=== PATIENT | female | born 1945 | race Caucasian/White ===

== ENCOUNTER 2025-05-31 06:39 | Emergency (ER) | payer MEDICARE, MEDICAID, SELFPAY ==
[2025-05-31] VITALS (7 sets, daily range): BP systolic 126–177; BP diastolic 44–105; PULSE 72–77; RESP 14–18; TEMP 36.8; O2SAT 86–97
--- NOTE | 2025-05-31 06:45 | XRR_ITS ---
PROCEDURE INFORMATION: Exam: XR Chest Exam date and time: 05/31/2025 6:57 AM Age: 80 years old Clinical indication: Cough and dyspnea; Additional info: Dyspnea/cough TECHNIQUE: Imaging protocol: Radiologic exam of the chest. Views: 1 view. COMPARISON: No relevant prior studies available. FINDINGS: Lungs: Emphysema with pulmonary hyperexpansion. No focal consolidation. Pleural spaces: No sizable pleural effusion or pneumothorax. Heart/Mediastinum: No cardiomegaly. Vasculature: Atherosclerotic calcifications of the aortic arch. Bones/joints: Unremarkable. XR/XR chest 1V portable [id number] IMPRESSION: No acute intrathoracic findings.
--- NOTE | 2025-05-31 06:57 | ED_ITS ---
HPI - General Adult 2 General: Chief complaint: Shortness of Breath/Dyspnea Stated complaint: low O2 sats Time Seen by Provider: 05/31/25 06:45 History of Present Illness: 80-year-old female presents emergency ro om via EMS from nursing with complaint of hypoxia. Typically patient wears 2 L/min at her baseline. EMS reported the patient was in the low 70s on room air. She is in no respiratory distress she is actually hide with annoyed that she was brought to the emergency room. Patient has a history of dementia also has history of COPD. No report of recent fever sweats or chills. Associated symptoms: Deny chest pain, dyspnea or rash Related Data Previous Rx's ?Medication ?Instructions ?Recorded methylprednisolone 4 mg tablets in See Rx Instructions PO .COMPLEX 05/31/25 a dose pack (Medrol (Ace)) #21 ea Allergies Allergy/AdvReac Type Severity Reaction Status Date / Time azithromycin Allergy Unknown Verified 05/31/25 06:53 clarithromycin Allergy Unknown Verified 05/31/25 06:53 erythromycin base Allergy Unknown Verified 05/31/25 06:53 influenza virus vaccine tvs Allergy Unknown Verified 05/31/25 06:53 [id number](65 years up) (From Fluzone High-Dose Triv ) Influenza Virus Vaccines Allergy Unknown Verified 05/31/25 06:53 Macrolide Antibiotics Allergy Unknown Verified 05/31/25 06:53 Penicillins Allergy Unknown Verified 05/31/25 06:53 Review of Systems 2 Const: Denies: fever(s) or chills Card: Denies: chest pain Resp: Denies: dyspnea GI: Denies: abdominal pain : Denies: dysuria, urinary frequency or urinary urgency Musc: Denies: neck pain or back pain Skin/Breast: Denies: rash Physical Exam 2 Const: ORIENTATION/CONSCIOUSNESS: Yes awake HENMT: COMMON NORMALS: normocephalic, atraumatic and hearing grossly normal bilaterally HEAD & SCALP: normocephalic and atraumatic Resp: COMMON NORMALS: normal respiratory effort, No retractions, No use of accessory muscles and clear to auscultation bilaterally AUSCULTATION: clear to auscultation bilaterally and diminished lung sounds Cardio: COMMON NORMALS: regular rate, regular rhythm and No murmurs present (Cardio) RATE: regular rate RHYTHM: regular rhythm GI: COMMON NORMALS: Soft to palpation and No hepatosplenomegaly present A USCULTATION: Yes normoactive bowel sounds PALPATION: Yes Soft to palpation, No Tenderness to palpation present (GI), No Guarding due to palpation present (GI) and Yes No hepatosplenomegaly present Extremity: COMMON NORMALS: normal to inspection, capillary refill normal, no clubbing, cyanosis or edema, no calf tenderness and no pedal edema Skin: COMMON NORMALS: no rashes or lesions noted GENERAL SKIN EXAM: no rashes or lesions noted Course 2 Vital Signs: Vital signs: Vital Signs Temperature 98.2 F 05/31/25 06:43 Pulse Rate 76 05/31/25 09:00 Respiratory Rate 17 05/31/25 09:00 Blood Pressure 143/44 05/31/25 09:00 Pulse Oximetry 93 05/31/25 09:00 Oxygen Delivery Me thod Nasal Cannula 05/31/25 09:00 Oxygen Flow Rate 3.5 05/31/25 09:00 MDM - General Adult Medical Decision Making Exam is pretty unremarkable there is reported a brief time of hypoxia at the custodial however evidently she was not on oxygen at the time she is maintaining her sats about where we would expect. The blood gas we vicky looks like it was probably a mixed arterial venous gas. Overall she is doing well the worst could be said at this point if she has a mild exacerbation of his COPD we will put her on a short course of steroids there is no sign of infection of the [place] antibiotics are warranted other labs were unremarkable EKG will discharge patient back to the custodial. Medical Records I reviewed the patient's medical records. Lab Data I reviewed the patient's lab results. 05/31/25 06:57 05/31/25 06:57 Radiology Impressions Chest X-Ray 05/31/25 06:45 IMPRESSION: No acute intrathoracic findings. Laboratory Results WBC 5.93 10^3/uL (3.29-11.43) 05/31/25 06:57 RBC 4.20 10^6/uL (3.85-5.65) 05/31/25 06:57 Hgb 12.60 g/dL (11.27-16.99) 05/31/25 06:57 Hct 41.2 % (36-47) 05/31/25 06:57 MCV 98.1 fl (85-98) H 05/31/25 06:57 MCH 30.0 pg (27-33) 05/31/25 06:57 MCHC 30.6 g/dL (30-55) 05/31/25 06:57 RDW 12.4 % (12.1-15.1) 05/31/25 06:57 Plt Count 180 10^3/cmm (157-399) 05/31/25 06:57 MPV 9.9 fL (7.4-10.4) 05/31/25 06:57 Neut % (Auto) 70.2 % 05/31/25 06:57 Lymph % (Auto) 18.0 % 05/31/25 06:57 [place] % (Auto) 9.6 % 05/31/25 06:57 Eos % (Auto) 1.5 % 05/31/25 06:57 Baso % (Auto) 0.5 % 05/31/25 06:57 Neut # (Auto) 4.16 10^3/uL (1.8-7.7) 05/31/25 06:57 Lymph # (Auto) 1.1 10^3/uL (0.8-4.8) 05/31/25 06:57 [place] # (Auto) 0.6 10^3/uL (0.2-0.9) 05/31/25 06:57 Eos # (Auto) 0.1 10^3/uL (0.0-0.8) 05/31/25 06:57 Baso # (Auto) 0.0 10^3/uL (0.0-0.1) 05/31/25 06:57 Nucleated RBC % (auto) 0 % 05/31/25 06:57 Nucleated RBCs # 0.0 /100WBC 05/31/25 06:57 Specimen Type Arterial 05/31/25 07:48 Sample Site Radial, right 05/31/25 07:48 ABG pH 7.41 (7.35-7.45) 05/31/25 07:48 ABG pCO2 58.4 mmHg (35-45) H 05/31/25 07:48 ABG pO2 52.9 mmHg (80.0-100.0) L 05/31/25 07:48 ABG PO2/FiO2 Ratio 188 05/31/25 07:48 ABG HCO3 36.6 mmol/L (22-26) H 05/31/25 07:48 ABG O2 Saturation 88.6 05/31/25 07:48 ABG Base Excess 9.8 mmol/L (-2.0-2.0) H 05/31/25 07:48 Josiah Test Pos 05/31/25 07:48 A-a O2 Gradient 9.9 mmHg (5-10) 05/31/25 07:48 Hematocrit 39.0 % (37-47) 05/31/25 07:48 Hgb O2 Saturation 86.7 % (95-100) L 05/31/25 07:48 Carboxyhemoglobin 1.3 %THgb (0.4-20.1) 05/31/25 07:48 Methemoglobin 0.8 % (0.4-1.5) 05/31/25 07:48 Total Hemoglobin 12.7 g/dL (12-16) 05/31/25 07:48 Sodium 145.0 mmol/L (131-143) H 05/31/25 07:48 Potassium 3.7 mmol/L (3.5-5.0) 05/31/25 07:48 Glucose 100.0 mg/dL (70-115) 05/31/25 07:48 Ionized Calcium 1.2 mmol/L (1.1-1.4) 05/31/25 07:48 O2 Delivery Device Nc 05/31/25 07:48 O2 Liters/Min 2.0 % 05/31/25 07:48 FiO2 28.0 % 05/31/25 07:48 Customer Solutions Supervisor ID glc 05/31/25 07:48 Sodium 145 mmol/L (136-145) 05/31/25 06:57 Potassium 3.9 mmol/L (3.5-5.1) 05/31/25 06:57 Chloride 101 mmol/L (98-107) 05/31/25 06:57 Carbon Dioxide 34 mmol/L (22-29) H 05/31/25 06:57 Anion Gap 13.9 (5-19) 05/31/25 06:57 BUN 17 mg/dL (8-23) 05/31/25 06:57 Creatinine 0.4 mg/dL (0.5-0.9) L 05/31/25 06:57 GFR Calculation Not Reportable 05/31/25 06:57 Glucose 94 mg/dL (65-115) 05/31/25 06:57 Calculated Osmolality 301 mOsm/kg (285-295) H 05/31/25 06:57 Calcium 9.2 mg/dL (8.5-10.5) 05/31/25 06:57 Total Bilirubin 0.3 mg/dL (0.15-1.2) 05/31/25 06:57 AST 14 U/L (0-32) 05/31/25 06:57 ALT < 5 U/L (0-33) 05/31/25 06:57 Alkaline Phosphatase 48 U/L (35-105) 05/31/25 06:57 Troponin T Baseline 19 ng/L (0-10) H 05/31/25 06:57 Troponin T 120 Minute 18.52 ng/L (0-10) H 05/31/25 08:39 Delta Troponin T -0.48 ABS# (0-10) L 05/31/25 08:39 C-Reactive Protein 3.0 mg/L (0.0-4.9) 05/31/25 06:57 NT-Pro-B Natriuret Pep 264 pg/mL (0-450) 05/31/25 06:57 Total Protein 7.0 g/dL (6.6-8.7) 05/31/25 06:57 Albumin 4.1 g/dL (3.5-5.2) 05/31/25 06:57 Globulin 2.9 g/dL (1.3-4.6) 05/31/25 06:57 Influenza A (PCR) Negative (Negative) 05/31/25 07:17 Influenza Type B (PCR) Negative (Negative) 05/31/25 07:17 RSV (PCR) Negative (Negative) 05/31/25 07:17 SARS-CoV-2 (PCR) Negative (Negative) 05/31/25 07:17 All radiology interpretation(s) finalized by discharge EKG Data EKG 1: Interpretation: EKG May 31, 2025 7:35 AM check rhythm low voltage. Right bundle branch block. Rate of 70. Normal 152 QTc 428. Right bundle branch block and left fascicular block. Results and abnormal ST segments. Computer reads ST elevation clinically patient has no chest pain at this time. No evidence of acute MS clinically EKG findings do not meet criteria for ST elevation MS Computer generated interpretation: Chest X-Ray 05/31/25 06:45 IMPRESSION: No acute intrathoracic findings. Discharge Plan Discharge Patient Disposition: Home Clinical Impression: Acute exacerbation of chronic obstructive airways disease Condition: Stable Prescriptions: New methylprednisolone [Medrol (Ace)] 4 mg tablets,dose pack See Rx Instructions .ROUTE .COMPLEX Qty: 21 0RF Rx Instructions: orally per package directions Discharge Orders: Discharge ED (Routine); Ordered 05/31/25 Ordered By: Mt Boucher Discharge Diet: Usual diet Discharge Activity: Resume usual activity Patient Instructions: Opioid Safety, Pain Management, Patient Portal & Maikol Instructions Activity Restrictions/Additional Instructions: Thank you for choosing [facility] for your healthcare needs today. It is very important that you follow up as instructed or that you return to the Emergency Department should you have concerns or if your condition changes or worsens in any way. You are seen emergency room with complaint of shortness of breath your cardiac enzymes were normal. On 3 and half liters her oxygen saturation remained at the expected range given your underlying COPD. There is no evidence of pneumonia on your chest x-ray. Your other labs did not show clinically significant abnormalities. Will have you on a short course of steroids continue your other medications at the custodial follow-up as needed. Print Language: Burmese Coding Level of Care Code ED Retail Associate Manager Bilingual for Marvel Arriaza
--- NOTE | 2025-05-31 06:58 | ECG_ITS ---
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1945 Requested By: Mt Finney Order Number: [id number] Reading MD: Measurements Intervals [place] Rate: 72 P: -85 AL: 153 QRS: 151 QRSD: 92 T: 70 QT: 396 QTc: 433 Interpretive Statements ECTOPIC ATRIAL RHYTHM INCOMPLETE RIGHT BUNDLE BRANCH BLOCK [90+ ms QRS DURATION, TERMINAL R IN V1/V2, 40+ ms S IN I/aVL/V4/V5/V6] RIGHT VENTRICULAR HYPERTROPHY [SOME/ALL OF: PROMINENT R IN V1, LATE TRANSITION, RAD, YVES, SSS] ST ELEVATION, CONSIDER INFERIOR INJURY [MARKED ST ELEVATION W/O NORMALLY INFLECTED T-WAVE IN II/aVF] ACUTE ME No previous ECG available for comparison [email or web address]
[2025-05-31 07:09] LABS: Hematocrit 41.2 % (36-47); Hemoglobin 12.60 g/dL (11.27-16.99); Mean Corpuscular HGB Conc 30.6 g/dL (30-55); Mean Corpuscular Hemoglobin 30.0 pg (27-33); Mean Corpuscular Volume 98.1 fl (85-98); Nucleated Red Blood Cells % 0 %; Platelet Count 180 10^3/cmm (157-399); Red Blood Count 4.20 10^6/uL (3.85-5.65); White Blood Count 5.93 10^3/uL (3.29-11.43)
[2025-05-31 07:34] LABS: Troponin(5th) Baseline 19 ng/L (0-10)
--- NOTE | 2025-05-31 07:40 | PC.NURSE ---
pt refused straight cath, Dr. Boucher notified.
[2025-05-31] MEDS: methylPREDNISolone sod succ 125 mg/2 mL INJ IVP (07:41)
[2025-05-31 07:45] LABS: Alanine Aminotransferase < 5 U/L (0-33); Albumin Level 4.1 g/dL (3.5-5.2); Alkaline Phosphatase 48 U/L (35-105); Anion Gap 13.9 (5-19); Aspartate Amino Transferase 14 U/L (0-32); Blood Urea Nitrogen 17 mg/dL (8-23); Calcium 9.2 mg/dL (8.5-10.5); Carbon Dioxide 34 mmol/L (22-29); Chloride 101 mmol/L (98-107); Globulin 2.9 g/dL (1.3-4.6); Glucose 94 mg/dL (65-115); NT Pro B Type Natriuretic Pept 264 pg/mL (0-450); Osmolality Calculated 301 mOsm/kg (285-295); Potassium 3.9 mmol/L (3.5-5.1); Sodium 145 mmol/L (136-145); Total Protein 7.0 g/dL (6.6-8.7)
[2025-05-31 07:59] LABS: ABG PCO2 58.4 mmHg (35-45); ABG PH Result 7.41 (7.35-7.45); Alveolar-Arterial Oxygen Gradi 9.9 mmHg (5-10); Arterial Blood Gas Hematocrit 39.0 % (37-47); Blood Gas Allen Test Pos; Blood Gas LPM 2.0 %; Blood Gas Operator Identificat glc; Blood Gas Sample Site Radial, right; Blood Gas Sample Type Arterial; Carboxyhemoglobin 1.3 %THgb (0.4-20.1); Glucose Level-ABG 100.0 mg/dL (70-115); HCO3 ABG 36.6 mmol/L (22-26); Ionized Calcium Level - ABG 1.2 mmol/L (1.1-1.4); Methemoglobin 0.8 % (0.4-1.5); Oxygen Saturation ABG 88.6; PO2 ABG 52.9 mmHg (80.0-100.0); PO2 FiO2 Ratio Arterial Blood 188; Potassium Level - ABG 3.7 mmol/L (3.5-5.0); Sodium Level - ABG 145.0 mmol/L (131-143)
[2025-05-31 08:19] LABS: Respiratory Syncytial Virus Ce NEGATIVE (Negative); SARS-CoV-2 PCR NEGATIVE (Negative)
[2025-05-31 09:10] LABS: Troponin 5 2HR 18.52 ng/L (0-10)
[2025-05-31 09:11] LABS: Troponin 5 2HR Delta -0.48 ABS# (0-10)
--- NOTE | 2025-05-31 12:58 | ECG_ITS ---
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 Measurements Intervals [place] Rate: 70 P: -81 CA: 152 QRS: 150 QRSD: 121 T: 55 QT: 407 QTc: 442 Interpretive Statements ECTOPIC ATRIAL RHYTHM RIGHT BUNDLE BRANCH BLOCK [120+ ms QRS DURATION, UPRIGHT V1, 40+ ms S IN I/aVL/V4/V5/V6] LEFT POSTERIOR FASCICULAR BLOCK [QRS AXIS > 109, INFERIOR Q] Compared to ECG 05/31/2025 06:53:22 Right bundle-branch block now present Left posterior fascicular block now present Incomplete right bundle-branch block no longer present Atrial abnormality no longer present Right ventricular hypertrophy no longer present ST (T wave) deviation still present Myocardial infarct finding still present Electronically Signed On 06-02-2025 08:43:44 CDT by Fidencio Barton M.D. [email or web address] [id number]
== END 2025-05-31 10:20 | disposition home or self-care (01) ==
PROVIDERS: Emergency Provider Family Medicine
DX: J44.1 Chronic obstructive pulmonary disease with (acute) exacerbation (principal); Z11.52 Encounter for screening for COVID-19
CPT/HCPCS: 36415; 36600; 71045; 80051; 80053; 82330; 82805; 83880; 84484; 85025; 86140; 87637; 93005; 93010; 94640; 96374; 99285; J2919; J9999

== ENCOUNTER 2025-10-10 20:18 | Emergency (ER) | payer MEDICARE, MEDICAID, SELFPAY ==
[2025-10-10 20:15] VITALS: BP 173/76; PULSE 71; RESP 20; TEMP 36.8; O2SAT 100; BMI 17.6
--- NOTE | 2025-10-10 20:15 | XRR_ITS ---
PROCEDURE INFORMATION: Exam: XR Chest Exam date and time: 10/10/2025 8:14 PM Age: 80 years old Clinical indication: Shortness of breath; EMS arrival from assisted for SOB. TECHNIQUE: Imaging protocol: Radiologic exam of the chest. Views: 1 view. COMPARISON: CR XR chest 1V portable [id number] 05/31/2025 6:57 AM FINDINGS: Lungs: Increased lung volumes. No consolidation. Pleural spaces: Unremarkable. No pleural effusion. No pneumothorax. Heart/Mediastinum: Unremarkable. No cardiomegaly. Bones/joints: Unremarkable. XR/XR chest 1V portable [id number] IMPRESSION: No acute findings.
--- OUTSIDE RECORDS SUMMARY | 2025-10-10 20:20 | XMS_ITS | Patient Health Record ---
Author Organization [facility] Address [address] [place] [address] Care Team Providers Care Primary Counselor Name Role Phone Nabil Guzman Unavailable [phone] Allergies Allergen (clinical drug ingredient) Drug/Non Drug Allergy documented on EMR Reaction Allergy Type Onset Date Status Vaccine product containing Influenza virus antigen (medicinal product) flu vaccine (uncoded) Unknown Allergy Active amoxicillin Amoxicillin Unknown Drug Allergy Act basil sulfamethoxazole / trimethoprim Bactrim Unknown Drug Allergy Active codeine Codeine Sulfate Unknown Drug Allergy A ctive erythromycin Erythromycin Unknown Drug Allergy A ctive Pneumococcal Vac Polyvalent Unknown Drug Allergy Active Reason For Referral No Information Medications Medication SIG (Take, Route, Frequency, Duration) Notes Start Date End Date Status Albuterol Sulfate HFA *Pick strength-form from DraftDay for eRX* Active Albuterol Sulfate (2.5 MG/3ML) 0.083% Nebulization Solution 3 ml Inhalation Act basil Social History Social History Additional Details Category Social Info Options Details Migrated Social History Social History: (Alcohol):No IN THE PAST (Caffine): Yes (Illicit Drugs):No (Sexually Active): No (Smoking): status: Current smoker Section Notes: RETIRED Plan Of Treatment No Information Medical (General) History Medical History History ICD Code COPD Surgical History Surgery Date(Month/Year) hysterectomy ovary removed eye surgery
--- NOTE | 2025-10-10 20:22 | ED_ITS ---
HPI - SOB/Dyspnea General: Chief Complaint: Shortness of Breath/Dyspnea Stated Complaint: sob History of Present Illness: HPI Narrative: 80-year-old female presenting with short ness of breath from the intermediate. On EMS arrival, they found her saturations to the low, in the 70s. Her oxygen hose was kinked. Upon unkinking of the hose, and appropriate levels of oxygen given to the patient, her saturations are now 90%. Her symptoms are resolved. She does not have a fever. Her vitals have been stable Related Data Previous Rx's ?Medication ?Instructions ?Recorded methylprednisolone 4 mg tablets in See Rx Instructions PO .COMPLEX 05/31/25 a dose pack (Medrol (Ace)) #21 ea Allergies Allergy/AdvReac Type Severity Reaction Status Date / Time azithromycin Allergy Unknown Verified 05/31/25 06:53 clarithromycin Allergy Unknown Verified 05/31/25 06:53 erythromycin base Allergy Unknown Verified 05/31/25 06:53 influenza virus vaccine tvs Allergy Unknown Verified 05/31/25 06:53 [id number](65 years up) (From Fluzone High-Dose Triv ) Influenza Virus Vaccines Allergy Unknown Verified 05/31/25 06:53 Macrolide Antibiotics Allergy Unknown Verified 05/31/25 06:53 Penicillins Allergy Unknown Verified 05/31/25 06:53 Physical Exam Const: COMMON NORMALS: no acute distress GENERAL APPEARANCE: cooperative and frail appearing NUTRITIONAL APPEARANCE: thin HENMT: COMMON NORMALS: normocephalic, atraumatic and Normal external nose present HEAD & SCALP: normocephalic and atraumatic FACE & SINUS: normal facial exam and face symmetric NOSE: Normal external nose present Eye: COMMON NORMALS: Equal, round and reactive pupils present and EOMs intact bilaterally PUPIL: Yes Equal, round and reactive pupils present Neck/C-Spine: GENERAL: Yes trachea midline Chest: CHEST: Yes Symmetrical chest wall rise Resp: COMMON NORMALS: normal respiratory effort, No retractions, No use of accessory muscles and clear to auscultation bilaterally AUSCULTATION: clear to auscultation bilaterally Cardio: COMMON NORMALS: regular rate and regular rhythm RATE: regular rate RHYTHM: regular rhythm GI: COMMON NORMALS: Normal to inspection, nondistended, normoactive bowel sounds present Extremity: COMMON NORMALS: no pedal edema Neuro: PRATIMA COMA SCALE: document GCS findings Pratima coma scale eye open ing: Spontaneous [place] coma scale verbal response: Orientated [place] coma scale motor response: Obey commands Pratima coma scale total score: 15 SENSORY EXAM: Yes extremities (intact) Psych: COMMON NORMALS: speech normal SPEECH: Yes normal speech Course Vital Signs: Vital signs: Vital Signs Temperature 98.2 F 10/10/25 20:15 Pulse Rate 75 10/10/25 20:28 Respiratory Rate 20 H 10/10/25 20:15 Blood Pressure 173/76 10/10/25 20:28 Pulse Oximetry 98 10/10/25 20:28 Oxygen Delivery Me thod Nasal Cannula 10/10/25 20:27 Oxygen Flow Rate 4 10/10/25 20:27 MDM - SOB/Dyspnea Medical Decision Making 80-year-old female with shortness of breath linked to a kinked oxygen hose in the intermediate. Saturations been normal now. She is no longer short of breath. She has a 98 to 100% saturation on her home oxygen setting. She will be discharged back to the intermediate. Her chest x-ray is clear. She is stable for discharge. Lab Data Labs/Radiology: Radiology Impressions Chest X-Ray 10/10/25 20:15 IMPRESSION: No acute findings. All radiology interpretation(s) finalized by discharge Discharge Plan Discharge Patient Disposition: Home Clinical Impression: Acute dyspnea, Chronic hypoxic respiratory failure Condition: Stable Prescriptions: No Action methylprednisolone [Medrol (Ace)] 4 mg tablets,dose pack See Rx Instructions .ROUTE .COMPLEX Qty: 21 0RF Rx Instructions: orally per package directions Discharge Orders: Discharge ED (Routine); Ordered 10/10/25 Ordered By: Redd Keen Patient Instructions: Opioid Safety, Pain Management, Patient Portal & Maikol Instructions Activity Restrictions/Additional Instructions: Return for any repeated episodes of shortness of breath, development of fever, leg swelling, chest pain, other concerning symptoms. Print Language: [place] Islander Coding Level of Care Code ED Lawn Care Professional for Marvel Arriaza
[2025-10-10 20:27] VITALS: BP 173/76; PULSE 73; O2SAT 98
[2025-10-10 20:28] VITALS: BP 173/76; PULSE 75; O2SAT 98
== END 2025-10-10 20:41 | disposition home or self-care (01) ==
PROVIDERS: Emergency Provider Emergency Medicine
DX: J96.11 Chronic respiratory failure with hypoxia (principal)
CPT/HCPCS: 71045; 99283